=== PATIENT | male | born 1945 | race Two or more races ===

== ENCOUNTER 2025-07-19 19:12 | Emergency (ER) | payer MEDICARE, SELFPAY ==
[2025-07-19 19:20] VITALS: BP 119/94; PULSE 75; TEMP 36.8; O2SAT 100; BMI 24.5
--- NOTE | 2025-07-19 19:33 | XR_ITS ---
[place] [id number] Patient Name: DONNA DAS MRN: [id number] date: 1945 Sex: M Assigned Patient Location: ER Current Patient Location: ED.MAIN Accession/Order Number: [id number] Exam Date: 07/19/2025 19:40 Report Date: 07/19/2025 19:51 At the request of: JACQUELINE CASTANEDA MD Procedure: XR chest 1V Plain film chest Single view HISTORY: Cough COMPARISON: None FINDINGS: SUPPORT DEVICES: None POSTSURGICAL CHANGES: None HEART: Within normal limits PULMONARY REGINALDO: Within normal limits MEDIASTINUM: Unremarkable LUNGS AND PLEURA: No acute lung process, pleural effusion or pneumothorax identified. BONY STRUCTURES: Degenerative change ADDITIONAL FINDINGS None XR/XR chest 1V IMPRESSION: No acute process. Impression dictated by: Chava Dias M.D. 07/19/2025 7:51 PM Dictation Location: [place] [address] Electronically authenticated by: [id number] Y Date: 07/19/2025 19:51
[2025-07-19 20:05] LABS: SARS-CoV-2 Ag POSITIVE (NEGATIVE)
--- NOTE | 2025-07-19 20:15 | ED.GENADUL1 ---
HPI HPI - General Adult General Chief complaint: Upper Respiratory Infection Stated complaint: Upper Respiratory Infection Time Seen by Provider: 07/19/25 19:20 Source: patient Mode of arrival: walk-in Limitations: no limitations History of Present Illness HPI narrative: 79-year-old male presented to the emergency department for a cough. He has had it for 2 days. This morning he coughed up a little bit of yellow phlegm. No known ill contacts. No vomiting or diarrhea. He is a non-smoker and does not have COPD. Related Data Home Medications ?Medication ?Instructions ?Recorded ?Confirmed glimepiride 4 mg tablet 4 mg PO DAILY 07/19/25 07/19/25 losartan 25 mg tablet (Cozaar) 25 mg PO DAILY 07/19/25 07/19/25 Allergies Allergy/AdvReac Type Severity Reaction Status Date / Time No Known Drug Allergies Allergy Verified 07/19/25 19:24 Review of Systems ROS Narrative A ten point review of systems is negative except as noted above. Exam Narrative Exam Narrative: Nurses note and vital signs reviewed and patient is not hypoxic. General:The patient appears in no acute distress. He coughs occasionally Skin:Warm, dry, no pallor noted.There is no rash noted. Head:Normocephalic, atraumatic Eye: Normal conjunctiva, no drainage Ears, Nose, Mouth, and Throat: oral mucosa is moist. Nares patent. Cardiovascular:Regular Rate and Rhythm Respiratory:Patient is in no distress, no accessory muscle use, lungs are clear to auscultation, no wheezing, rales or rhonchi Back:non-tender GI: Soft and nontender Musculoskeletal: The patient has no evidence of calf tenderness, no pitting edema, symmetrical pulses noted bilaterally Neurological:A&O, normal speech Psychiatric:Cooperative Constitutional Vital Signs, click to edit/add: Last Vital Signs Temp 98.3 F 07/19/25 19:20 Pulse 75 07/19/25 19:20 Resp 20 07/19/25 19:20 BP 119/94 H 07/19/25 19:20 Pulse Ox 100 07/19/25 19:20 O2 Del Method Room Air 07/19/25 19:20 Course Vital Signs Vital signs: Vital Signs Temperature 98.3 F 07/19/25 19:20 Pulse Rate 75 07/19/25 19:20 Respiratory Rate 20 07/19/25 19:20 Blood Pressure 119/94 H 07/19/25 19:20 Pulse Oximetry 100 07/19/25 19:20 Oxygen Delivery Method Room Air 07/19/25 19:20 Temperature 98.3 F 07/19/25 19:20 Pulse Rate 75 07/19/25 19:20 Respiratory Rate 20 07/19/25 19:20 Blood Pressure 119/94 H 07/19/25 19:20 Pulse Oximetry 100 07/19/25 19:20 Oxygen Delivery Method Room Air 07/19/25 19:20 Medical Decision Making MDM Narrative Medical decision making narrative: Chest x-ray is negative. COVID test is positive and he was prescribed Paxlovid and Tessalon. Treatment diagnosis and follow-up were discussed with the patient and his . Differential Diagnosis Differential Diagnosis: Pneumonia, COVID, influenza Lab Data Lab results reviewed: Yes I reviewed the patient's lab results Labs: Lab Results 07/19/25 Range/Units 19:40 Influenza Type A Ag Negative Influenza Type B Ag Negative SARS-CoV-2 Ag (CV2AG) Positive A (NEGATIVE) Imaging Data Chest x-ray: Radiologist's impression: ITS Impressions Chest X-Ray 07/19/25 19:33 IMPRESSION: No acute process. Impression dictated by: Chava Dias M.D. 07/19/2025 7:51 PM [facility]ictation [facility] authenticated by: [id number] Y Date: 07/19/2025 19:51 Discharge Plan Discharge Chief Complaint: Upper Respiratory Infection Clinical Impression: COVID-19 Patient Disposition: Home, Self-Care Time of Disposition Decision: 20:09 Condition: Good Mode of Transportation: Private Vehicle Prescriptions / Home Meds: No Action losartan [Cozaar] 25 mg tablet 25 mg PO DAILY glimepiride 4 mg tablet 4 mg PO DAILY Print Language: Bengali Instructions: COVID-19 (Coronavirus Disease 2019) (ED), Face Coverings (Masks) and COVID-19 (ED), How to Recover from COVID-19 at Home (ED) Additional Instructions: Handwritten instructions for Paxlovid and Tessalon given Referrals: Physician,Non-Staff, MD [Primary Care Provider] - 1 week
[2025-07-19 20:30] VITALS: O2SAT 98
== END 2025-07-19 20:33 | disposition home or self-care (01) ==
PROVIDERS: Emergency Provider Emergency Medicine
DX: U07.1 COVID-19 (principal)
CPT/HCPCS: 71045; 87804; 87811; 99285